=== PATIENT | female | born 1980 | race Asian ===

== ENCOUNTER → 2018-03-13 09:15 | Outpatient (CLI) | payer OTHER, SELFPAY ==
--- NOTE | 2018-03-13 | DI.US.S_ITS ---
PROCEDURE: US PELVIC COMPLETE INDICATIONS: RIGHT ADNEXAL TENDERNESS TECHNIQUE: Real-time scanning was performed of the pelvic organs, with image documentation. Additional endovaginal scanning was necessary due to incomplete visualization of the adnexal and endometrial structures by transabdominal scanning. COMPARISON: None. FINDINGS: Transabdominal scanning: Limited scanning through the kidneys shows no hydronephrosis. No pathologic free abdominal or pelvic fluid. Endovaginal scanning: Uterus: Surgically absent. Ovaries: Ovaries normal size measuring 4.1 x 1.6 x 1.3 cm on the right and 3.3 x 1.8 x 1.4 cm on the left. Small follicular cysts present bilaterally, largest measuring 1.7cm involving the right ovary. Presumed fluid-filled bowel seen adjacent to the right ovary. IMPRESSION: Small bilateral follicular cysts and presumed fluid-filled bowel seen adjacent to the right ovary. Dictated by: Robbie CASE Interpreted: Meggan Talavera MD on 03/13/2018 at 11:59 Approved by: Meggan Talavera M.D. on 03/13/2018 at 15:08
== END ==
PROVIDERS: Family Provider Family Medicine; PCP Family Medicine; Visit Provider Family Medicine
DX: N83.01 Follicular cyst of right ovary (principal)
CPT/HCPCS: 76830; 76856

== ENCOUNTER → 2018-03-21 14:18 | Outpatient (REF) | payer OTHER, SELFPAY | LOC: LAB 14:18 | PROVIDERS: Family Provider Family Medicine; PCP Family Medicine; Visit Provider Otolaryngology Facial Plastic Surgery | DX: H90.3 Sensorineural hearing loss, bilateral (principal); J02.9 Acute pharyngitis, unspecified; R22.1 Localized swelling, mass and lump, neck | CPT/HCPCS: 87070 ==

== ENCOUNTER → 2018-09-27 11:36 | Outpatient (CLI) | payer OTHER, SELFPAY ==
[2018-09-27 12:04] LABS: Add Manual Diff / Slide Review NO; Basophils Percent Auto 1.1 % (0-2); Eosinophils Percent Auto 2.3 % (2-4); Hematocrit 40.8 % (36-46); Hemoglobin 14.4 g/dL (12.0-16.0); Lymphocytes Percent Auto 29.5 % (25-40); Mean Corpuscular HGB Conc 35.3 % (30-36); Mean Corpuscular Hemoglobin 31.5 PG (26-34); Mean Corpuscular Volume 89.4 fL (80-100); Monocytes Percent Auto 6.4 % (3-14); Neutrophils Absolute Auto 4700 /uL (3000-5900); Neutrophils Percent Auto 60.7 % (50-75); Platelet Count 369 X10^3/uL (150-400); Red Blood Cell Count 4.57 X10^6/uL (4.0-5.2); Red Cell Distribution Width 12.3 % (11.6-14.8); White Blood Cell Count 7.8 X10^3/uL (4.5-11.0)
[2018-09-27 12:18] LABS: Alanine Aminotransferase 133 IU/L (9-52); Albumin 4.9 g/dL (3.5-5.0); Albumin Globulin Ratio 1.5 (1.0-2.8); Alkaline Phosphatase 61 U/L (38-126); Aspartate Aminotransferase 65 IU/L (14-36); BUN Creatinine Ratio 23.3 (6-22); Blood Urea Nitrogen 14 mg/dL (7-17); Calcium 9.5 mg/dL (8.4-10.2); Carbon Dioxide 26 mmol/L (22-32); Chloride 100 mmol/L (98-107); Cholesterol 173 mg/dL (140-199); Estimated Glomerular Filt Rate > 60.0 mL/min (>60); Globulin 3.3 g/dL (1.7-4.1); Glucose 101 mg/dL (70-100); HDL Cholesterol 65 mg/dL (40-60); HEMOLYSIS 25 (0-50); LDL Cholesterol Calculated 95 mg/dL (<100); Potassium 4.1 mmol/L (3.4-5.1); Sodium 142 mmol/L (137-145); Total Protein 8.2 g/dL (6.3-8.2); Triglycerides 65 mg/dL (35-150)
[2018-09-27 12:48] LABS: Thyroid Stimulating Hormone 1.97 uIU/mL (0.47-4.68)
[2018-09-27 13:23] LABS: Vitamin D 25 Hydroxy (D3) 25.4 ng/mL (30.0-100.0)
== END ==
PROVIDERS: Family Provider Family Medicine; PCP Family Medicine; Visit Provider Family Medicine
DX: I10 Essential (primary) hypertension (principal); E87.6 Hypokalemia; R59.1 Generalized enlarged lymph nodes; E83.52 Hypercalcemia
CPT/HCPCS: 36415; 80053; 80061; 82306; 84443; 85025

== ENCOUNTER → 2019-08-21 13:18 | Outpatient (CLI) | payer OTHER, SELFPAY ==
--- NOTE | 2019-08-21 | DI.MG.S_ITS ---
BILATERAL DIGITAL SCREENING MAMMOGRAM 3D/2D WITH CAD: 08/21/2019 CLINICAL: Routine screening. Family history of breast cancer. Comparison is made to exam dated: 09/17/2017 [facility] - [facility]. The tissue of both breasts is extremely dense, which lowers the sensitivity of mammography. Current study was also evaluated with a Computer Aided Detection (CAD) system. There are new linear fine calcifications in the right breast middle depth superior region seen on the mediolateral oblique view only. No other significant masses, calcifications, or other findings are seen in either breast. IMPRESSION: INCOMPLETE: NEEDS ADDITIONAL IMAGING EVALUATION The new linear fine calcifications in the right breast are indeterminate. Lateral magnification and spot magnification views are recommended. This exam was interpreted at Station ID: [id number]. NOTE: For mammograms, a report in lay terms will be sent to the patient. Approximately 15% of breast malignancies will not be visualized mammographically. In the management of a palpable breast mass, a negative mammogram must not discourage biopsy of a clinically suspicious lesion. Electronically Signed By: Fabi jane/toni:08/24/2019 16:52:40 letter sent: Additional Imaging Needed ACR BI-RADS Category 0: Incomplete 3340F
== END ==
PROVIDERS: PCP Family Medicine; Visit Provider Family Medicine
DX: Z12.31 Encounter for screening mammogram for malignant neoplasm of breast (principal); Z80.3 Family history of malignant neoplasm of breast
CPT/HCPCS: 77063; 77067

== ENCOUNTER → 2019-09-23 14:37 | Outpatient (CLI) | payer OTHER, SELFPAY ==
--- NOTE | 2019-09-23 | DI.MG.S_ITS ---
UNILATERAL RIGHT DIGITAL DIAGNOSTIC MAMMOGRAM 3D/2D WITH ADDITIONAL VIEWS: 09/23/2019 CLINICAL: Additional evaluation requested from prior study. Comparison is made to exams dated: 08/21/2019 mammogram and 09/17/2017 mammogram - [facility]. The tissue of right breast is extremely dense, which lowers the sensitivity of mammography. The previously described linear calcifications in the right breast middle depth superior region seen on the mediolateral oblique view only are seen in the upper outer quadrant and appear to be more loosely grouped to scattered in overall distribution. No associated mass or architectural distortion. They are more punctate and round in morphology. No other significant masses or calcifications are seen in the breast. Of note, benign appearing calcifications in the left breast have also developed since prior mammogram of 2017. IMPRESSION: There is no mammographic evidence of malignancy. The calcifications of interest appear benign. A 1 year screening mammogram is recommended. This exam was interpreted at Station ID: [id number]. NOTE: For mammograms, a report in lay terms will be sent to the patient. Approximately 15% of breast malignancies will not be visualized mammographically. In the management of a palpable breast mass, a negative mammogram must not discourage biopsy of a clinically suspicious lesion. Electronically Signed By: Jace Villaseñor M.D. aty/:09/23/2019 15:23:24 letter sent: Normal Exam ACR BI-RADS Category 2: Benign Finding(s) 3342F
== END ==
PROVIDERS: PCP Family Medicine; Visit Provider Family Medicine
DX: R92.8 Other abnormal and inconclusive findings on diagnostic imaging of breast (principal); R92.1 Mammographic calcification found on diagnostic imaging of breast
CPT/HCPCS: 77065; G0279

== ENCOUNTER → 2020-09-24 08:07 | Outpatient (CLI) | payer OTHER, SELFPAY ==
--- NOTE | 2020-09-24 | DI.MG.S_ITS ---
BILATERAL DIGITAL SCREENING MAMMOGRAM 3D/2D WITH CAD: 09/24/2020 CLINICAL: Routine screening. Family history of breast cancer. Comparison is made to exams dated: 09/23/2019 mammogram, 08/21/2019 mammogram, and 09/17/2017 mammogram - [facility]. The tissue of both breasts is heterogeneously dense. This may lower the sensitivity of mammography. Current study was also evaluated with a Computer Aided Detection (CAD) system. No significant masses, calcifications, or other findings are seen in either breast. There has been no significant interval change. IMPRESSION: NEGATIVE There is no mammographic evidence of malignancy. A 1 year screening mammogram is recommended. This exam was interpreted at Station ID: [id number]. NOTE: For mammograms, a report in lay terms will be sent to the patient. Approximately 15% of breast malignancies will not be visualized mammographically. In the management of a palpable breast mass, a negative mammogram must not discourage biopsy of a clinically suspicious lesion. Electronically Signed By: Melanie johns/toni:09/26/2020 17:32:24 letter sent: Normal Exam ACR BI-RADS Category 1: Negative 3341F
== END ==
PROVIDERS: PCP Family Medicine; Referring Provider Family Medicine; Visit Provider Family Medicine
DX: Z12.31 Encounter for screening mammogram for malignant neoplasm of breast (principal); Z80.3 Family history of malignant neoplasm of breast
CPT/HCPCS: 77063; 77067